=== PATIENT | male | born 1980 | race Two or more races ===

== ENCOUNTER → 2018-12-22 11:50 | Outpatient (CLI) | payer OTHER | END | disposition home or self-care (01) | LOC: LAB 11:50 | DX: N20.0 Calculus of kidney (principal); R09.02 Hypoxemia ==

== ENCOUNTER 2018-12-25 14:23 | Outpatient (CLI) | payer OTHER | END 2018-12-25 14:34 | disposition home or self-care (01) | LOC: RAD 14:23 | DX: G47.33 Obstructive sleep apnea (adult) (pediatric) (principal) ==

== ENCOUNTER 2019-01-01 07:12 | Outpatient (CLI) | payer OTHER | END 2019-01-01 13:44 | disposition home or self-care (01) | LOC: TOM 07:12 | DX: N20.0 Calculus of kidney (principal) ==

== ENCOUNTER 2019-01-09 06:58 | Outpatient (CLI) | payer OTHER | END 2019-01-09 07:08 | disposition home or self-care (01) | LOC: LAB 06:58 | DX: N20.0 Calculus of kidney (principal) ==

== ENCOUNTER 2019-01-31 07:10 | Outpatient (CLI) | payer OTHER | END 2019-01-31 07:26 | disposition home or self-care (01) | LOC: LAB 07:10 | DX: N30.10 Interstitial cystitis (chronic) without hematuria (principal); N20.0 Calculus of kidney ==

== ENCOUNTER 2019-02-21 10:00 | Inpatient (IN) | payer OTHER ==
[~2019-02-21] VITALS: Ht 172.7 cm; Wt 136.1 kg
[~2019-02-21 10:00] MED LIST: JANUMET 50-1,01 EACH PO; LOSARTAN POTASS25 MG PO; TRULICITY0.75 MG/0.
== END 2019-02-23 13:02 | disposition home or self-care (01) | DRG 661 ==
LOC: CIR.AMB 10:00 → SURH 18:02 → O/R 18:02 → SURH 18:23
PROVIDERS: ADMIT Urology
PROC: 0T7D8ZZ Dilation of Urethra, Via Natural or Artificial Opening Endoscopic (ICD-10-PCS; 2019-02-21)
PROC: BT1FZZZ Fluoroscopy of Left Kidney, Ureter and Bladder (ICD-10-PCS; 2019-02-21)
PROC: 0TC18ZZ Extirpation of Matter from Left Kidney, Via Natural or Artificial Opening Endoscopic (ICD-10-PCS; principal; 2019-02-21 13:30)
DX: N20.0 Calculus of kidney (principal); N35.812 Other bulbous urethral stricture, male; E66.01 Morbid (severe) obesity due to excess calories

== ENCOUNTER 2019-03-02 07:49 | Outpatient (CLI) | payer OTHER | END 2019-03-02 09:36 | disposition home or self-care (01) | LOC: LAB 07:49 | DX: N20.0 Calculus of kidney (principal); D62 Acute posthemorrhagic anemia ==

== ENCOUNTER 2019-03-26 09:02 | Outpatient (CLI) | payer OTHER | END 2019-03-26 09:03 | disposition home or self-care (01) | LOC: RAD 09:02 | DX: N20.0 Calculus of kidney (principal) ==